=== PATIENT | female | born 1930 | race African-American/Black ===

== ENCOUNTER 2018-04-13 15:56 | Observation (INO) | payer OTHER, SELFPAY ==
--- OUTSIDE RECORDS SUMMARY | 2018-04-13 15:58 | XMS REPORT ---
:1930 Author Organization eClinicalWorks Care Team Providers Name Role Phone High, Na Provider Role Unavailable Allergies, Adverse Reactions, Alerts Substance Reaction Event Type N.K.D.A. Info Not Available Non Drug Allergy Problems Problem Type Condition Code Onset Dates Condition Status Assessment Anxiety F41.9 Active Problem Mixed hyperlipidemia E78.2 Active Problem Diabetes mellitus, type 2 E11.9 Active Problem Anxiety F41.9 Active Problem CKD (chronic kidney disease) stage N18.5 Active 5, GFR less than 15 ml/min Problem CKD (chronic kidney disease) stage N18.3 Active 3, GFR 30-59 ml/min Problem CAD (coronary artery disease) I25.10 Active Problem Chronic renal disease N18.9 Active Problem Chronic depressive person F34.1 Active Problem HTN (hypertension) I10 Active Medications Medication Code Code Instructions Start End Status Dosage System Date Date Xanax [facility] 60620436520 0.5 MG Orally Active 1 tablet once a day prn anxiety Valsartan [facility] 55623830741 320 MG Active TAKE ONE TABLET BY MOUTH DAILY Clonidine HCl [facility] 36969699157 0.1 MG Orally Active 1 tablet Once a day at bedtime Diovan [facility] 46292770147 320 MG Orally Active 1 tablet Once a day Xanax [facility] 36602700728 0.5 MG Orally January 26, Active 1 tablet once a day prn 2018 Aspirin 81 [facility] 53921922820 81 MG Orally Active 1 tablet Once a day Zantac [facility] 86040191374 150 MG Orally Active 1 tablet Once a day at bedtime Hydrochlorothiazide [facility] 89488579589 12.5 MG Orally Active TAKE ONE Once a day TABLET BY MOUTH DAILY Pravastatin Sodium [facility] 45501638971 10 MG Orally Active 1 tablet Once a day Isosorbide Dinitrate [facility] 57490966363 30 MG Orally Active 1 tablet Twice a day Results No Known Results Summary Purpose eClinicalWorks Submission
--- OUTSIDE RECORDS SUMMARY | 2018-04-13 15:58 | XMS REPORT ---
:1930 Author Organization eClinicalWorks Care Team Providers Name Role Phone High, Tiffanie Provider Role Unavailable Allergies, Adverse Reactions, Alerts Substance Reaction Event Type N.K.D.A. Info Not Available Non Drug Allergy Problems Problem Type Condition Code Onset Dates Condition Status Assessment HTN (hypertension) I10 Active Problem Mixed hyperlipidemia E78.2 Active Problem [...] F34.1 Active Problem HTN (hypertension) I10 Active Assessment CKD (chronic kidney disease) stage N18.3 Active 3, GFR 30-59 ml/min Assessment Anxiety F41.9 Active Assessment Mixed hyperlipidemia E78.2 Active Medications Medication Code Code Instructions Start End Status Dosage System Date Date Xanax [facility] 59263813455 0.5 MG Orally January 26, Active 1 tablet once a day prn 2018 Valsartan [facility] 96009927679 320 MG Active TAKE ONE TABLET BY MOUTH DAILY Zantac [facility] 75013366383 150 MG Orally Active 1 tablet Once a day at bedtime Hydrochlorothiazide [facility] 70057958947 12.5 MG Orally Active 1 tablet Once a day in the morning Pravastatin Sodium [facility] 47128406558 10 MG Orally Active 1 tablet Once a day Clonidine HCl [facility] 77394080402 0.1 MG Orally Active 1 tablet Once a day at bedtime Isosorbide Dinitrate [facility] 38729837810 30 MG Orally Active 1 tablet Twice a day Xanax [facility] 28930198921 0.5 MG Orally Active 1 tablet once a day prn anxiety Aspirin 81 [facility] 97016637980 81 MG Orally Active 1 tablet Once a day Hydrochlorothiazide [facility] 83178039871 12.5 MG Orally Active TAKE ONE Once a day TABLET BY MOUTH DAILY Vikas [facility] 79487139896 320 MG Orally Active 1 tablet Once a day Results No Known Results Summary Purpose eClinicalWorks Submission
--- OUTSIDE RECORDS SUMMARY | 2018-04-13 15:59 | XMS REPORT ---
:1930 Author Organization eClinicalWorks Care Team Providers Name Role Phone High, Na Provider Role Unavailable Allergies, Adverse Reactions, Alerts Substance Reaction Event Type N.K.D.A. Info Not Available Non Drug Allergy Problems Problem Type Condition Code Onset Dates Condition Status Problem Mixed hyperlipidemia E78.2 Active Problem Diabetes mellitus, type 2 E11.9 Active Assessment Anxiety F41.9 Active Problem Anxiety F41.9 Active Problem CKD [...] Start End Status Dosage System Date Date Diovan [facility] 03144742629 320 MG Orally Active 1 tablet Once a day Hydrochlorothiazide [facility] 74594546890 12.5 MG Orally Active 1 tablet Once a day in the morning Xanax [facility] 40900569626 0.5 MG Orally January 26, Active 1 tablet once a day prn 2018 Aspirin 81 [facility] 56602154994 81 MG Orally Active 1 tablet Once a day Clonidine HCl [facility] 13377109128 0.1 MG Orally Active 1 tablet Once a day at bedtime Xanax [facility] 30059222242 0.5 MG Orally Active 1 tablet once a day prn anxiety Hydrochlorothiazide [facility] 63910239467 12.5 MG Orally Active TAKE ONE Once a day TABLET BY MOUTH DAILY Valsartan [facility] 79879323536 320 MG Active TAKE ONE TABLET BY MOUTH DAILY Zantac [facility] 72934991579 150 MG Orally Active 1 tablet Once a day at bedtime Pravastatin Sodium [facility] 24628626384 10 MG Orally Active 1 tablet Once a day Isosorbide Dinitrate [facility] 15642517916 30 MG Orally Active 1 tablet Twice a day Results No Known Results Summary Purpose eClinicalWorks Submission
--- OUTSIDE RECORDS SUMMARY | 2018-04-13 15:59 | XMS REPORT ---
:1930 Author Organization eClinicalWorks Care Team Providers Name Role Phone High, Na Provider Role Unavailable Allergies No Known Allergies Problems Problem Type Condition Code Onset Dates [...] Medications Medication Code Code Instructions Start End Date Status Dosage System Date Losartan [facility] 81514983462 100 MG Orally March 26, Active 1 tablet Potassium Once a day 2017 Results No Known Results Summary Purpose eClinicalWorks Submission
[2018-04-13] MEDS ORDERED: NA CHLORIDE 0.9% 2,000 ML ONE (16:29)
--- NOTE | 2018-04-13 16:33 | RAD REPORT ---
EXAM DESCRIPTION: RAD - Chest Single View - 04/13/2018 4:28 pm CLINICAL HISTORY: hypotension Chest pain. COMPARISON: No comparisons FINDINGS: Portable technique limits examination quality. The lungs are grossly clear. The heart is normal in size. No displaced fractures. IMPRESSION: No acute intrathoracic process suspected.
[2018-04-13 16:43] LABS: Arterial Blood Carboxyhemoglob 1.3 % (0-1.5); Blood Gas Oxyhemoglobin 95.8 % (94-97); Blood O2 Saturation 97.5 % (92-98.5)
[2018-04-13 17:06] LABS: Absolute Lymphocytes (CBC) 1.2 K/uL (0.7-4.9); Absolute Monocytes 0.5 K/uL (0.1-1.3); Absolute Neutrophil 2.3 K/uL (1.8-8.0); Basophils % 0.5 % (0-1.3); Eosinophils % 3.4 % (0-4.4); Hematocrit 40.1 % (36.0-45.0); Lymphocytes % 29.7 % (15.3-44.8); MCH 30.3 pg (27.0-35.0); MCV 90.3 fL (80-100); MPV 9.4 fL (7.6-11.3); Monocytes % 11.6 % (3.3-12.3); RBC Red Blood Cell Count 4.44 M/uL (3.86-4.86)
[2018-04-13 17:10] LABS: Protime INR 1.08
[2018-04-13 17:36] LABS: ALT/SGPT 17 U/L (12-78); AST/SGOT 16 U/L (15-37); Albumin 3.5 g/dL (3.4-5.0); Alkaline Phosphatase 78 U/L (45-117); Amylase Level 75 U/L (25-115); BUN Blood Urea Nitrogen 47 mg/dL (7-18); Bicarbonate 25 mmol/L (21-32); Bilirubin Direct 0.1 mg/dL (0-0.2); Bilirubin Total 0.3 mg/dL (0.2-1.0); C-Reactive Protein < 2.90 mg/L (<3.00); CKMB Creatine Kinase MB 1.8 ng/mL (0.3-3.6); Creatine Phosphokinase 72 U/L (26-192); Glucose Level 171 mg/dL (74-106); Lipase 173 U/L (73-393); Potassium 4.3 mmol/L (3.5-5.1); Protein, Total 7.1 g/dL (6.4-8.2); Sodium Level 140 mmol/L (136-145)
--- NOTE | 2018-04-13 18:04 | ER ---
Nurse's Notes [facility] Name: Liudmila Gregorio Age: 88 yrs Sex: Female : 1930 Arrival Date: 04/13/2018 Time: 16:02 Bed 7 Private MD: Tiffanie High Diagnosis: Acute kidney failure, unspecified;Volume depletion Presentation: 04/13 16:05 Presenting complaint: Child states: We went to Dr Guerra office and her BP was low la1 (70s/40s) and he wanted us to get her checked out. Transition of care: patient was not received from another setting of care. Onset of symptoms was April 13, 2018. Risk Assessment: Do you want to hurt yourself or someone else? Patient reports no desire to harm self or others. Initial Sepsis Screen: Does the patient meet any 2 criteria?. Initial Sepsis Screen: Does the patient have a suspected source of infection? No. Patient's initial sepsis screen is negative. Care prior to arrival: None. 16:05 Method Of Arrival: Wheelchair la1 16:05 Acuity: REBECA 2 la1 Historical: - Allergies: 16:10 No Known Allergies; la1 - PMHx: 16:10 Hypertension; CAD; Depression; NIDDM; la1 - Immunization history:: Adult Immunizations up to date. - Social history:: Smoking status: unknown. - Ebola Screening: : Patient negative for fever greater than or equal to 101.5 degrees Fahrenheit, and additional compatible Ebola Virus Disease symptoms Patient denies exposure to infectious person Patient denies travel to an Ebola-affected area in the 21 days before illness onset. Screenin:00 Abuse screen: Denies threats or abuse. Denies injuries from another. Nutritional hb screening: No deficits noted. Tuberculosis screening: No symptoms or risk factors identified. Fall Risk Total B[place]eo Fall Scale indicates High Risk Score (45 or more points). Fall prevention measures have been instituted. Side Rails Up X 2 Frequent Obs/Assessments Occuring Family Present and informed to notify staff if the need to leave the bedside As available patient and family educated on Fall Prevention Program and Strategies. Assessment: 16:20 General: Appears in no apparent distress. Behavior is calm, cooperative. Pain: Denies hb pain. Neuro: Level of Consciousness is awake, alert, obeys commands, Oriented to person, place, time, situation. Cardiovascular: Heart tones S1 S2 present Capillary refill < 3 seconds Patient's skin is warm and dry. Respiratory: Airway is patent Trachea midline Respiratory effort is even, unlabored, Respiratory pattern is regular, symmetrical, Breath sounds are clear bilaterally. GI: No signs and/or symptoms were reported involving the gastrointestinal system. : No signs and/or symptoms were reported regarding the genitourinary system. EENT: No signs and/or symptoms were reported regarding the EENT system. Derm: No signs and/or symptoms reported regarding the dermatologic system. Skin is intact, is healthy with good turgor. Musculoskeletal: No signs and/or symptoms reported regarding the musculoskeletal system. 17:00 Reassessment: Patient appears in no apparent distress at this time. Patient and/or hb family updated on plan of care and expected duration. Pain level reassessed. Patient is alert, oriented x 3, equal unlabored respirations, skin warm/dry/pink. 18:00 Reassessment: Patient appears in no apparent distress at this time. Patient and/or hb family updated on plan of care and expected duration. Pain level reassessed. Patient is alert, oriented x 3, equal unlabored respirations, skin warm/dry/pink. 19:00 Reassessment: Patient appears in no apparent distress at this time. No changes from hb previously documented assessment. Patient and/or family updated on plan of care and expected duration. Pain level reassessed. Patient is alert, oriented x 3, equal unlabored respirations, skin warm/dry/pink. 19:21 Reassessment: Report given to LUCHO Kaye. Patient to be taken to her assigned room. ao Vital Signs: 16:09 BP 75 / 54; Pulse 75; Resp 16; Temp 98.4(O); Pulse Ox 96% on R/A; Weight 72.57 kg; la1 16:30 BP 73 / 31; Pulse 72; Resp 15; Pulse Ox 100% on R/A; hb 17:00 BP 89 / 38; Pulse 67; Resp 15; Pulse Ox 100% on R/A; Pain 0/10; hb 17:45 BP 95 / 68; Pulse 64; Resp 16; Pulse Ox 100% on R/A; hb 18:15 BP 103 / 66; Pulse 65; Resp 15; Pulse Ox 100% on R/A; hb 19:14 BP 118 / 63; Pulse 65; Resp 14; Pulse Ox 100% on R/A; Pain 0/10; ao ED Course: 16:02 Patient arrived in ED. es 16:03 Tiffanie High MD is Private Physician. es 16:08 Triage completed. la1 16:10 [facility]C [facility] snw 16:10 Arm band placed on right wrist. la1 16:11 Everardo Yanez MD is Attending Physician. snw 16:21 Enio Hardy, RN is Primary Nurse. sg 16:25 X-ray completed. Portable x-ray completed in exam room. Patient tolerated procedure ml well. 16:26 Chest Single View XRAY In Process Unspecified. EDMS 16:38 EKG done, by neurophysiology tech. reviewed by Marilyn AG. sm3 16:45 Inserted saline lock: 22 gauge in left antecubital area, using aseptic technique. Blood hb collected. 17:00 Patient has correct armband on for positive identification. Placed in gown. Bed in low hb position. Call light in reach. Side rails up X2. 17:30 Hart cath inserted, using sterile technique, 16 Fr., by pr, balloon inflated, to hb gravity drainage, urine specimen collected. 18:02 Charo Kwon MD is Hospitalizing Provider. snw 19:20 No provider procedures requiring assistance completed. Patient admitted, IV remains in ao place. Administered Medications: 16:56 Drug: NS 0.9% (30 ml/kg) 30 ml/kg Route: IV; Rate: bolus; Site: left antecubital; hb 19:28 Follow up: IV Status: Infusion continued upon admission ao Point of Care Testing: Blood Glucose: 17:05 Blood Glucose: 179 mg/dL; hb Ranges: Outcome: 18:03 Decision to Hospitalize by Provider. snw 19:21 Admitted to Med/surg accompanied by [facility], room 211. ao 19:21 Condition: stable 19:21 Instructed on the need for admit. 19:28 Patient left the ED. ao Signatures: Dispatcher [employer] EDMS Enio Hardy, LUCHO YEPEZ Marilyn Pérez FNP-C CASH MANAGEMENT SPECIALIST-Csnw Blanca Gomes Melissa ml Attema, Lee, RN RN la1 Deyvi Trejo RN RN Sandra Quintanilla RN RN Dhara Arroyo 3 Corrections: (The following items were deleted from the chart) 16:09 16:05 Acuity: REBECA 3 la1 la1
--- NOTE | 2018-04-13 18:04 | EDPHYS ---
Physician Documentation [facility] Name: Liudmila Lindsayector Age: 88 yrs Sex: Female : 1930 Arrival Date: 04/13/2018 Time: 16:02 Bed 7 Private MD: Tiffanie High ED Physician Everardo Yanez HPI: 04/13 16:20 This 88 yrs old Black Female presents to ER via Wheelchair with complaints of Anxiety, snw Blood Pressure Problem. 16:20 Onset: The symptoms/episode began/occurred pt asymptomatic. Associated signs and snw symptoms: The patient has no apparent associated signs or symptoms. It is unknown whether or not the patient has had similar symptoms in the past. Pt went to Dr. High's office for regular check up and blood pressure was too low. Pt sent to ED for eval. Denies s/s. Pt changed from Diovann to Losartan one week ago per report. . Pt denies s/s. Historical: - Allergies: 16:10 No Known Allergies; la1 - PMHx: 16:10 Hypertension; CAD; Depression; NIDDM; la1 - Immunization history:: Adult Immunizations up to date. - Social history:: Smoking status: unknown. - Ebola Screening: : Patient negative for fever greater than or equal to 101.5 degrees Fahrenheit, and additional compatible Ebola Virus Disease symptoms Patient denies exposure to infectious person Patient denies travel to an Ebola-affected area in the 21 days before illness onset. ROS: 16:20 Constitutional: Negative for fever, chills, and weight loss, Eyes: Negative for injury, snw pain, redness, and discharge, ENT: Negative for injury, pain, and discharge, Neck: Negative for injury, pain, and swelling, Cardiovascular: Negative for chest pain, palpitations, and edema, Respiratory: Negative for shortness of breath, cough, wheezing, and pleuritic chest pain, Abdomen/GI: Negative for abdominal pain, nausea, vomiting, diarrhea, and constipation, Back: Negative for injury and pain, : Negative for injury, bleeding, discharge, and swelling, MS/Extremity: Negative for injury and deformity, Skin: Negative for injury, rash, and discoloration, Neuro: Negative for headache, weakness, numbness, tingling, and seizure. Exam: 16:20 Constitutional: This is a well developed, well nourished patient who is awake, alert, snw and in no acute distress. Head/Face: Normocephalic, atraumatic. Eyes: Pupils equal round and reactive to light, extra-ocular motions intact. Lids and lashes normal. Conjunctiva and sclera are non-icteric and not injected. Cornea within normal limits. Periorbital areas with no swelling, redness, or edema. ENT: Nares patent. No nasal discharge, no septal abnormalities noted. Tympanic membranes are normal and external auditory canals are clear. Oropharynx with no redness, swelling, or masses, exudates, or evidence of obstruction, uvula midline. Mucous membranes moist. Neck: Trachea midline, no thyromegaly or masses palpated, and no cervical lymphadenopathy. Supple, full range of motion without nuchal rigidity, or vertebral point tenderness. No Meningismus. Chest/axilla: Normal chest wall appearance and motion. Nontender with no deformity. No lesions are appreciated. Cardiovascular: Regular rate and rhythm with a normal S1 and S2. No gallops, murmurs, or rubs. Normal PMI, no JVD. No pulse deficits. Respiratory: Lungs have equal breath sounds bilaterally, clear to auscultation and percussion. No rales, rhonchi or wheezes noted. No increased work of breathing, no retractions or nasal flaring. Abdomen/GI: Soft, non-tender, with normal bowel sounds. No distension or tympany. No guarding or rebound. No evidence of tenderness throughout. Back: No spinal tenderness. No costovertebral tenderness. Full range of motion. Skin: Warm, dry with normal turgor. Normal color with no rashes, no lesions, and no evidence of cellulitis. MS/ Extremity: Pulses equal, no cyanosis. Neurovascular intact. Full, normal range of motion. Neuro: Awake and alert, GCS 15, oriented to person, place, time, and situation. Cranial nerves II-XII grossly intact. Motor strength 5/5 in all extremities. Sensory grossly intact. Cerebellar exam normal. Normal gait. Psych: Awake, alert, with orientation to person, place and time. Behavior, mood, and affect are within normal limits. Vital Signs: 16:09 BP 75 / 54; Pulse 75; Resp 16; Temp 98.4(O); Pulse Ox 96% on R/A; Weight 72.57 kg; la1 16:30 BP 73 / 31; Pulse 72; Resp 15; Pulse Ox 100% on R/A; hb 17:00 BP 89 / 38; Pulse 67; Resp 15; Pulse Ox 100% on R/A; Pain 0/10; hb 17:45 BP 95 / 68; Pulse 64; Resp 16; Pulse Ox 100% on R/A; hb 18:15 BP 103 / 66; Pulse 65; Resp 15; Pulse Ox 100% on R/A; hb 19:14 BP 118 / 63; Pulse 65; Resp 14; Pulse Ox 100% on R/A; Pain 0/10; ao MDM: 16:20 Patient medically screened. snw 18:01 Data reviewed: vital signs, nurses notes. Data interpreted: Pulse oximetry: on room air snw is 100 %. Interpretation: normal. Counseling: I had a detailed discussion with the patient and/or guardian regarding: the historical points, exam findings, and any diagnostic results supporting the discharge/admit diagnosis, lab results, radiology results, the need for further work-up and treatment in the hospital. Physician consultation: Charo Kwon MD was called at 18:02, was contacted at 18:02, regarding admission, to the telemetry unit. 04/13 16:12 Order name: T\T\S; Complete Time: 19:16 snw 04/13 16:12 Order name: Urine Culture snw 04/13 16:12 Order name: Urine Microscopic Only snw 04/13 16:12 Order name: ABG; Complete Time: 17:03 snw 04/13 16:12 Order name: Amylase, Serum; Complete Time: 17:39 snw 04/13 16:12 Order name: Basic Metabolic Panel; Complete Time: 17:39 snw 04/13 16:12 Order name: Blood Culture Adult (2) snw 04/13 16:12 Order name: C-Reactive Protein; Complete Time: 17:39 snw 04/13 16:12 Order name: CBC with Diff; Complete Time: 17:39 snw 04/13 16:12 Order name: Ckmb; Complete Time: 17:39 snw 04/13 16:12 Order name: CPK; Complete Time: 17:39 snw 04/13 16:12 Order name: Lactate; Complete Time: 18:01 snw 04/13 16:12 Order name: LFT's; Complete Time: 17:39 snw 04/13 16:12 Order name: Lipase; Complete Time: 17:39 snw 04/13 16:12 Order name: Cath; Complete Time: 17:40 snw 04/13 16:12 Order name: Procalcitonin; Complete Time: 17:50 snw 04/13 16:12 Order name: Protime (+inr); Complete Time: 17:25 snw 04/13 16:12 Order name: Ptt, Activated; Complete Time: 17:25 snw 04/13 16:12 Order name: Sed Rate; Complete Time: 17:39 snw 04/13 16:12 Order name: Troponin (emerg Dept Use Only); Complete Time: 17:47 snw 04/13 16:12 Order name: Chest Single View XRAY; Complete Time: 17:03 snw 04/13 16:12 Order name: Accucheck; Complete Time: 17:40 snw 04/13 16:12 Order name: Cardiac monitoring; Complete Time: 16:59 snw 04/13 16:12 Order name: EKG - Nurse/Tech; Complete Time: 16:59 snw 04/13 16:12 Order name: IV Saline Lock - Large Bore; Complete Time: 16:59 snw 04/13 17:05 Order name: Glucose, Ancillary Testing; Complete Time: 17:25 EDMS 04/13 17:53 Order name: EKG Electrocardiogram EDMS 04/13 18:17 Order name: Diet Regular; Complete Time: 18:17 ss 04/13 19:12 Order name: ABO/RH no charge; Complete Time: 19:16 EDMS 04/13 16:12 Order name: Labs collected and sent; Complete Time: 16:59 snw 04/13 16:12 Order name: O2 Per Protocol; Complete Time: 16:59 snw 04/13 16:12 Order name: O2 Sat Monitoring; Complete Time: 16:59 snw 04/13 16:12 Order name: Hart; Complete Time: 18:08 snw 04/13 16:30 Order name: Misc. Order: please admin fluid bolus - one liter at a time and then eval snw need for more; Complete Time: 17:40 04/13 17:25 Order name: Misc. Order: Please document blood pressures; Complete Time: 17:39 snw Administered Medications: 16:56 Drug: NS 0.9% (30 ml/kg) 30 ml/kg Route: IV; Rate: bolus; Site: left antecubital; hb 19:28 Follow up: IV Status: Infusion continued upon admission ao Point of Care Testing: Blood Glucose: 17:05 Blood Glucose: 179 mg/dL; hb Ranges: Critical Glucose Levels:Adult <50 mg/dl or >400 mg/dl <40 mg/dl or >180 mg/dl Disposition: 04/13/18 18:03 Hospitalization ordered by Charo Kwon for Inpatient Admission. Preliminary diagnosis are Acute kidney failure, unspecified, Volume depletion. - Bed requested for Telemetry/MedSurg (Inpatient). - Status is Inpatient Admission. ao - Condition is Stable. - Problem is new. - Symptoms are unchanged. UTI on Admission? No Addendum: 04/16/2018 07:27 Co-signature as Attending Physician, Everardo Yanez MD I agree with the assessment and k dr plan of care. Signatures: Dispatcher [employer] EDTX Everardo Yanez MD MD [facility] Marilyn Pérez, EMERGENCY VETERINARIAN-C EMERGENCY VETERINARIAN-Csnw Eulalio Gayle RN RN la1 Deyvi Trejo RN RN ao Sandra Chen RN RN Ambar Mccall Corrections: (The following items were deleted from the chart) 04/13 18:55 18:03 Hospitalization Ordered by Charo Kwon MD for Inpatient Admission. Preliminary eb diagnosis is Acute kidney failure, unspecified; Volume depletion. Bed requested for Telemetry/MedSurg (Inpatient). Status is Inpatient Admission. Condition is Stable. Problem is new. Symptoms are unchanged. UTI on Admission? No. snw 19:27 16:12 Urine Dipstick-Ancillary ordered. snw ao 19:28 18:55 04/13/2018 18:03 Hospitalization Ordered by Charo Kwon MD for Inpatient ao Admission. Preliminary diagnosis is Acute kidney failure, unspecified; Volume depletion. Bed requested for Telemetry/MedSurg (Inpatient). Status is Inpatient Admission. Condition is Stable. Problem is new. Symptoms are unchanged. UTI on Admission? No. eb
--- NOTE | 2018-04-13 18:05 | P.HP ---
Certification for Inpatient Patient admitted to: Observation With expected LOS: <2 Midnights Patient will require the following post-hospital care: None Practitioner: I am a practitioner with admitting privileges, knowledge of patient current condition, hospital course, and medical plan of care. Services: Services provided to patient in accordance with Admission requirements found in Title 42 Section 412.3 of the Code of Federal Regulations Patient History Date of Service: 04/13/18 Primary Care Provider: Dr High Reason for admission: NIURKA History of Present Illness: This is a 88-year-old female with significant past medical history of hypertension, diabetes, who presented to the ED from her primary care doctor's office. Patient went to her primary care doctor's office today for regular checkup and was found to be hypertensive that she was sent over to the ER for further workup. Patient's family at bedside stated that patient was switched over from valsartan to losartan due to recall 2 weeks ago and had a follow up appointment today however her blood pressure at the doctor's office was 70 to over 40s and thus she was brought over to the hospital for further checkup. Patient also has been having poor appetite for last couple of days and has not been taking any oral fluids is she would usually take. Patient denies having acute symptoms at this time states that she does not have any chest pain shortness of breath fever chills nausea vomiting or any other associated symptoms Home medications list reviewed: Yes - Past Medical/Surgical History Has patient received pneumonia vaccine in the past: Yes Diabetic: Yes -: HTN -: Diabetes Past Surgical History: Reviewed- Non-Contributory - Family History Family History: Reviewed- Non-Contributory - Social History Smoking Status: Never smoker Smoking therapy provided: No Patient receptive to therapy: No Alcohol use: No CD- Drugs: No Caffeine use: No Place of Residence: Home Review of Systems General: As per HPI Physical Examination - Physical Exam General: Alert, In no apparent distress HEENT: Atraumatic, PERRLA, Mucous membr. moist/pink, EOMI, Sclerae nonicteric Neck: Supple, 2+ carotid pulse no bruit, No LAD, Without JVD or thyroid abnormality Respiratory: Clear to auscultation bilaterally, Normal air movement Cardiovascular: Regular rate/rhythm, Normal S1 S2 Gastrointestinal: Normal bowel sounds, No tenderness Musculoskeletal: No tenderness Integumentary: No rashes Neurological: Normal gait, Normal speech, Normal strength at 5/5 x4 extr, Normal tone, Normal affect Lymphatics: No axilla or inguinal lymphadenopathy - Studies Laboratory Data (last 24 hrs) 04/13/18 16:45: PT 12.7 H, INR 1.08, APTT 22.3 L 04/13/18 16:45: WBC 4.1 L, Hgb 13.5, Hct 40.1, Plt Count 197 04/13/18 16:45: Sodium 140, Potassium 4.3, BUN 47 H, Creatinine 2.30 H, Glucose 171 H, Total Bilirubin 0.3, AST 16, ALT 17, Alkaline Phosphatase 78, Amylase 75 , Lipase 173 Assessment and Plan - Problems (Diagnosis) (1) NIURKA (acute kidney injury) Current Visit: Yes Status: Acute Plan: NIURKA most likely 2.2 to Medication Change and Dehydration -IV fluids -Avoid Nephrotoxic agent (2) Hypotension Current Visit: Yes Status: Acute Plan: Most Likely 2.2 medication Change -Recently Changed from Valsartan to Losartan. -Will hold BP meds for now Qualifiers: Hypotension type: hypotension due to drug Qualified Code(s): I95.2 - Hypotension due to drugs (3) Elevated troponin Current Visit: Yes Status: Acute Plan: Elevated Tropoinin with Elevated CR and Lactic acid -Most likely 2.2 to Dehydration -Patient denies having Chest Pain -Will consulted Cardiology if repeat Troponin trending up (4) Dehydration Current Visit: Yes Status: Acute Plan: See # 1 (5) HTN (hypertension) Current Visit: Yes Status: Chronic Qualifiers: Hypertension type: essential hypertension Qualified Code(s): I10 - Essential (primary) hypertension Discharge Plan: Home Plan to discharge in: 24 Hours - Advance Directives Does patient have a Living Will: No Does patient have a Durable POA for Healthcare: No - Code Status/Comfort Care Code Status Assessed: Yes Critical Care: No
[2018-04-13] MEDS ORDERED: ACETAMINOPHEN 500 MG TAB PO PRN (19:31)
[2018-04-13] MEDS: NA CHLORIDE 0.9% 1,000 ML IV SCH ×2 (19:31→21:54)
[2018-04-13] MEDS ORDERED: ONDANSETRON 4 MG/2 ML VIAL IV PRN (19:31)
[2018-04-13] MEDS: INSULIN -REGULAR HUMAN 50 UNIT/0.5 ML ML SQ SCH (21:00)
[2018-04-13 23:31] LABS: Urine Appearance CLEAR; Urine Bilirubin NEGATIVE (NEG); Urine Blood 3+ (NEG); Urine Color YELLOW; Urine Glucose TRACE (NEG); Urine Protein TRACE (NEG); Urine Urobilinogen 0.2 mg/dL (0.2-1.0); Urine pH 6.5 (5.0-7.0)
[2018-04-13] MEDS: ALPRAZOLAM 0.5 MG TABLET PO PRN (23:36)
[2018-04-13 23:42] LABS: Urine Bacteria <20 /HPF (<20); Urine RBC >50 /HPF (NONE SEEN)
[2018-04-13 23:43] LABS: Urine Culture Reflex Order NOT NEEDED
[2018-04-14 04:41] LABS: Albumin 2.9 g/dL (3.4-5.0); Bilirubin Total 0.3 mg/dL (0.2-1.0); Magnesium 1.9 mg/dL (1.8-2.4); Potassium 4.2 mmol/L (3.5-5.1)
[2018-04-14 05:01] LABS: Absolute Lymphocytes (CBC) 1.4 K/uL (0.7-4.9); Absolute Monocytes 0.6 K/uL (0.1-1.3); Absolute Neutrophil 2.7 K/uL (1.8-8.0); Basophils % 0.4 % (0-1.3); Eosinophils % 3.8 % (0-4.4); Hematocrit 34.9 % (36.0-45.0); MCH 30.6 pg (27.0-35.0); MPV 10.2 fL (7.6-11.3); Monocytes % 12.3 % (3.3-12.3); RBC Red Blood Cell Count 3.88 M/uL (3.86-4.86)
--- NOTE | 2018-04-14 06:48 | EKG ---
Test Date: 2018-04-13 Test Time: 16:32:50 Ditto Machine Operator: BATOOL MEASUREMENT RESULTS: Intervals: Rate: 67 SC: 214 QRSD: 108 QT: 438 QTc: 462 [place]: P: 57 SC: 214 QRS: -20 T: 129 INTERPRETIVE STATEMENTS: Sinus rhythm with 1st degree AV block Left ventricular hypertrophy with repolarization abnormality Abnormal ECG No previous ECG available for comparison Electronically Signed On 04-14-18 06:48:05 CDT by Adan Humphrey
[2018-04-14] MEDS: INSULIN -REGULAR HUMAN 50 UNIT/0.5 ML ML SQ SCH ×4 (07:30→20:08)
[2018-04-14] MEDS: NA CHLORIDE 0.9% 1,000 ML IV SCH ×2 (15:31→20:07)
[2018-04-14] MEDS ORDERED: ATORVASTATIN 10 MG TAB PO SCH (21:00)
[2018-04-14] MEDS ORDERED: HOME MED 1 EA UNK (Pravastatin Sodium [Pravastatin Sodium] 10 MG) PO SCH (21:00)
--- NOTE | 2018-04-14 21:00 | PN ---
Date of Progress Note: 04/14/2018 Subjective: The patient is seen and examined. Chart reviewed and case discussed with RN and Dr. Pierre's nurse. The patient is awake and alert. Denies any symptoms. Daughter is at the bedside. Treatment plan explained. All questions answered. Review of Systems: Negative except as above. Medications: List reviewed. Physical Examination: Vital Signs: Temperature 97.5, heart rate 78, blood pressure 140/85, respirations 16, O2 98% on room air. General: Awake, alert, oriented x3, not in any acute distress. Elderly female. CV: S1, S2. Regular rate and rhythm. Peripheral pulses present. Respiratory: Moving air well bilaterally. No wheezing. No stridor. No use of accessory muscles. Gastrointestinal: Abdomen is soft, nontender, nondistended. Positive bowel sounds. Extremities: No clubbing, cyanosis, edema. Neurologic: Nonfocal. Laboratory Data: Sodium 142, potassium 4.2, chloride 111, CO2 25, BUN 42, creatinine 1.9, glucose 137, calcium 8.4. Troponin 0.11. WBC 4.9, H and H 11.9 and 34.9, platelets 136. Blood culture pending. Urine culture is also pending. Assessment And Plan: An 88-year-old female with: 1. Hypotension secondary to medication change. We will hold ARB for now. Blood pressure has improved. We will continue to monitor. Continue IV fluids. 2. Acute on chronic kidney injury, stage 3. I spoke with Dr. High's nurse. The patient has had chronic kidney issues. Creatinine in March was 2.07. The patient has not been compliant with seeing a general duty nurse. We will obtain Nephrology consultation, avoid nephrotoxins, and monitor creatinine. 3. Elevated troponin level, likely secondary to dehydration. We will obtain echocardiogram to rule out any wall motion abnormality. Troponin is trending down. 4. Acute dehydration, improving. 5. Essential hypertension, stable. Medications adjusted. 6. Diabetes mellitus type 2, non-insulin dependent with hyperglycemia. Continue sliding scale insulin. 7. Gastrointestinal and deep venous thrombosis prophylaxis addressed. SA/MODL Voice ID: [id number] Report ID: [id number] [facility]PITALR[facility]
[2018-04-15] MEDS: ALPRAZOLAM 0.5 MG TABLET PO PRN (01:58)
[2018-04-15] MEDS: NA CHLORIDE 0.9% 1,000 ML IV SCH ×2 (04:46→11:31)
[2018-04-15 06:23] LABS: Absolute Lymphocytes (CBC) 1.3 K/uL (0.7-4.9); Absolute Monocytes 0.6 K/uL (0.1-1.3); Absolute Neutrophil 2.7 K/uL (1.8-8.0); Basophils % 0.5 % (0-1.3); Eosinophils % 3.7 % (0-4.4); Hematocrit 37.2 % (36.0-45.0); Lymphocytes % 26.6 % (15.3-44.8); MCH 30.3 pg (27.0-35.0); MCV 88.9 fL (80-100); Monocytes % 13.2 % (3.3-12.3); RBC Red Blood Cell Count 4.18 M/uL (3.86-4.86)
[2018-04-15 06:56] LABS: Bilirubin Total 0.3 mg/dL (0.2-1.0); Protein, Total 6.2 g/dL (6.4-8.2)
[2018-04-15] MEDS: INSULIN -REGULAR HUMAN 50 UNIT/0.5 ML ML SQ SCH ×2 (07:30→11:30)
[2018-04-15] MEDS ORDERED: cloNIDine HCl 0.1 MG TAB PO SCH (09:00)
[2018-04-15] MEDS ORDERED: hydroCHLOROthiazide 12.5 MG CAP PO SCH (09:00)
[2018-04-15] MEDS ORDERED: ASPIRIN EC 81 MG TAB PO SCH (09:00)
[2018-04-15] MEDS ORDERED: ISOSORBIDE DINIT 20 MG TAB PO SCH (09:00)
[2018-04-15] MEDS ORDERED: LOSARTAN POTASSIUM 50 MG TABLET PO SCH (09:00)
[2018-04-15] MEDS ORDERED: HOME MED 1 EA UNK (Isosorbide Dinitrate [Isosorbide Dinitrate] 30 MG) PO SCH (09:00)
--- NOTE | 2018-04-15 09:36 | EKG ---
Test Date: 2018-04-15 Test Time: 09:19:58 Lead Systems Developer: EVELIN MEASUREMENT RESULTS: Intervals: Rate: 75 SC: 240 QRSD: 110 QT: 450 QTc: 502 [place]: P: 71 SC: 240 QRS: -26 T: 109 INTERPRETIVE STATEMENTS: Sinus rhythm with 1st degree AV block ST & T wave abnormality, consider lateral ischemia Prolonged QT Abnormal ECG Compared to ECG 04/13/2018 16:32:50 Left ventricular hypertrophy is no longer present Electronically Signed On 04-15-18 09:36:13 CDT by Adan Humphrey
--- NOTE | 2018-04-15 11:20 | ECHO ---
HEIGHT: 5 ft 2 in WEIGHT: 163 lb 3 oz DATE OF STUDY: 04/15/[address]: 2-DIMENSIONAL: YES M.MODE: YES DOPPLER: YES COLOR FLOW: YES TDS: NO PORTABLE: NO DEFINITY: NO BUBBLE STUDY: NO DIAGNOSIS: CHEST PAIN CARDIAC HISTORY: CATHERIZATION: SURGERY: PROSTHETIC VALVE: PACEMAKER: MEASUREMENTS (cm) DIASTOLIC (NORMALS) SYSTOLIC (NORMALS) IVSd 1.9 (0.6-1.2) LA Diam 3.2 (1.9-4.0) LVEF 76% LVIDd 3.4 (3.5-5.7) LVIDs 1.9 (2.0-3.5) %FS 43% LVPWd 1.4 (0.6-1.2) Ao Diam 2.7 (2.0-3.7) 2 DIMENSIONAL ASSESSMENT: RIGHT ATRIUM: NORMAL LEFT ATRIUM: NORMAL RIGHT VENTRICLE: NORMAL LEFT VENTRICLE: LEFT VENTRICULAR HYPERTROPHY CONCENTRIC SEVERE TRICUSPID VALVE: NORMAL MITRAL VALVE: NORMAL PULMONIC VALVE: NORMAL AORTIC VALVE: NORMAL PERICARDIAL EFFUSION: NONE AORTIC ROOT: NORMAL LEFT VENTRICULAR WALL MOTION: NORMAL DOPPLER/COLOR FLOW: MILD TRICUSPID REGURGITATION. NORMAL RIGHT VENTRICULAR SYSTOLIC PRESSURE. IMPAIRED LEFT VENTRICULAR RELAXATION. COMMENTS: NORMAL LEFT VENTRICULAR EJECTION FRACTION. SEVERE CONCENTRIC LEFT VENTRICULAR HYPERTROPHY. MILD TRICUSPID REGURGITATION. IMPAIRED LEFT VENTRICULAR RELAXATION. TECHNOLOGIST: RAJINDER TOWNSEND
--- NOTE | 2018-04-15 14:52 | DS ---
Date of Discharge: 04/15/2018 Consultants: None. Admitting Diagnoses: 1.Acute kidney injury. 2.Hypertension. 3.Elevated troponin level. 4.History of essential hypertension. Discharge Diagnoses: 1.Acute on chronic kidney injury, stage 3. 2.Hypotension, resolved. 3.Elevated troponin level. 4.Acute dehydration. 5.Essential hypertension, medications adjusted. 6.Diabetes mellitus type 2, non-insulin dependent with hyperglycemia. Hospital Course: The patient is an 88-year-old female with past medical history of hypertension, curtis mckeon, comes in from the primary care doctor's office for low blood pressure with 70s over 40s. The patient was recently started on ARB, was switched over to losartan from valsartan due to their recall . The patient became hypotensive, did not have any chest pain or shortness of breath, was found to h ave elevated creatinine level of 2.2. She was started on IV fluids. Her troponin was slightly eleva marie. This was thought to be secondary to demand mismatch from her acute medical issues including the hypotension. The patient's losartan was discontinued. She had improvement in her condition with IV fluid resuscitation. Her blood pressure also improved and was on the elevated side. Her clonidine dose was adjusted. EKG showed sinus rhythm with first-degree AV block. The patient did not have any chest pain. Echocardiogram was ordered. The patient was to follow up with Nephrology as an outpati ent; however, according to primary care physician's nurse whom contacted the day prior to discharge, the family has not taken the patient for Nephrology for unclear reasons. No family currently at the bedside. Nephrology was consulted, however, was discharged to follow up with them as an outpatient a s her condition improved and I spoke with Dr. Laughlin, who will be glad to see her in his office. Th e patient's blood cultures did not show any growth. Her urine culture also did not show any growth. The patient was then cleared for discharge, sent home in a stable condition. Activity: Fall precautions. Diet: Renal, diabetic diet. Followup: Follow up with primary care physician in 2-3 days. Follow up with armed custom protection officer, Dr. Aditya garcía in 1 week. Return to ER for worsening condition. Avoid NSAIDs and nephrotoxins. Medications: As per medication reconciliation list. Discontinue losartan. Follow up with nephrolog ist and primary care physician for restarting ARB for renal protective reasons given her diabetes as her kidney function improves; however, will be held in this acute state. Physical Examination: General: Awake, alert, oriented x3. No acute distress. Elderly female. CV: S1, S2. No murmurs. Respiratory: Moving air well bilaterally. Abdomen: Soft, nontender, nondistended. Positive bowel sounds. Extremities: No clubbing, cyanosis, edema. Neurologic: Nonfocal. SA/MODL Voice ID: [id number] Report ID: [id number]
== END 2018-04-15 14:51 | disposition home health service (06) ==
LOC: ER 15:56 → ERHOLD 18:06 → INTOOBSV 18:06 → 2ND 19:15
PROVIDERS: ADMIT Family Medicine; ATTEND Family Medicine
DX: N17.9 Acute kidney failure, unspecified (principal); E86.0 Dehydration; R74.8 Abnormal levels of other serum enzymes; E11.22 Type 2 diabetes mellitus with diabetic chronic kidney disease; I12.9 Hypertensive chronic kidney disease with stage 1 through stage 4 chronic kidney disease, or unspecified chronic kidney disease; N18.3 Chronic kidney disease, stage 3 (moderate); E11.65 Type 2 diabetes mellitus with hyperglycemia; I44.0 Atrioventricular block, first degree; I95.2 Hypotension due to drugs; T46.5X5A Adverse effect of other antihypertensive drugs, initial encounter; Y92.009 Unspecified place in unspecified non-institutional (private) residence as the place of occurrence of the external cause; Z79.82 Long term (current) use of aspirin; E78.2 Mixed hyperlipidemia; I25.10 Atherosclerotic heart disease of native coronary artery without angina pectoris; F32.9 Major depressive disorder, single episode, unspecified; F41.9 Anxiety disorder, unspecified
CPT/HCPCS: 36415 ×2; 51702; 71045; 80048; 80053 ×2; 80076; 81001; 82150; 82550; 82553; 82805; 82962 ×8; 83605 ×2; 83690; 83735; 84100; 84145; 84484 ×4; 85025 ×3; 85610; 85652; 85730; 86140; 86850; 86900; 86901; 87040 ×2; 87088; 93005 ×2; 93306; 96365; 96366; 99285; G0378 ×2; J7030 ×5; 87086; 96360; 96361